=== PATIENT | female | born 1980 | race Two or more races ===

== ENCOUNTER 2020-04-02 13:52 | Inpatient (IN) | payer MEDICAID, OTHER ==
[~2020-04-02] VITALS: Ht 170.2 cm; Wt 88.0 kg
[2020-04-02] MEDS ORDERED: cloNIDine HCL 0.1 MG TAB PO ONE (14:15)
[2020-04-02 15:20] LABS: Basophils # (auto) 0.1 10 ^3/uL (0-0.2); Basophils % (auto) 0.5 % (0.0-2.0); Eosinophils # (auto) 0.1 10 ^3/uL (0-0.8); Eosinophils % (auto) 0.8 % (0.0-7.0); Hematocrit 22.2 % (36.0-46.0); Lymphocytes % (auto) 18.9 % (10.0-50.0); Mean Corpuscular Hemoglobin 17.5 pg (28.0-32.0); Mean Corpuscular Volume 56.4 fL (80.0-100.0); Monocytes # (auto) 0.6 10 ^3/uL (0-1.3); Monocytes % (auto) 5.8 % (0.0-12.0); Neutrophils # (auto) 7.9 10 ^3/uL (1.6-8.6); Platelet Count (auto) 597 10^3/uL (140-450); Red Blood Cells 3.94 10^6/uL (4.0-5.20); White Blood Cell 10.6 10^3/uL (4.4-10.8)
[2020-04-02 15:24] LABS: Hemoglobin 6.9 g/dL (12.2-16.2)
[2020-04-02 15:37] LABS: Albumin 3.2 g/dL (3.4-5.0); Calcium 8.4 mg/dL (8.5-10.1)
[2020-04-02 15:40] LABS: BUN/Creatinine Ratio 9.5; Bilirubin, Total 0.4 mg/dL (0.2-1.0); Total Protein 8.1 g/dL (6.4-8.2)
[2020-04-02 15:44] LABS: Potassium 2.9 mmol/L (3.5-5.1)
[2020-04-02] MEDS ORDERED: POTASSIUM CHLORIDE 40 MEQ, LIDOCAINE 1% (LOCAL ANESTH.) 4 ML in SODIUM CHL 0.9% 250 ML IV ONE (16:00)
[2020-04-02 16:03] LABS: Amphetamine Screen, Urine NEGATIVE (NEGATIVE); Barbiturate Scree,Urine NEGATIVE (NEGATIVE); Cannabinoid Screen, Urine POSITIVE (NEGATIVE)
[2020-04-02 16:11] LABS: Benzodiazephine Screen, Urine NEGATIVE (NEGATIVE); Cocaine Screen, Urine NEGATIVE (NEGATIVE); Opiate Scree,Urine NEGATIVE (NEGATIVE); Phencyclidine Screen, Urine NEGATIVE (NEGATIVE)
[2020-04-02 16:17] LABS: Urine Bacteria NONE SEEN /hpf (None Seen); Urine Blood Negative /uL (Negative); Urine Mucus FEW (None Seen); Urine Specific Gravity 1.022 (1.001-1.035); Urine WBC 11 /hpf (0 - 5)
[2020-04-02 17:17] LABS: INR 1.05 (0.9-1.15); Partial Thromboplastin Time 28.2 sec (23.0-31.2)
[2020-04-02] MEDS ORDERED: cefTRIAXone 1GM/50ML D5W 50 ML IV ONE (19:30)
[2020-04-02] MEDS ORDERED: metroNIDAZOLE 500MG/100ML 100 ML IV ONE (19:30)
[2020-04-02] MEDS: D5W/SOD CHL 0.45%/KCL 40MEQ 1,000 ML IV SCH (19:45)
[2020-04-02] MEDS ORDERED: NITROGLYCERIN 0.4 MG SL TAB SL PRN (19:45)
[2020-04-02] MEDS ORDERED: SODIUM CHLORIDE 0.9% 1,000 ML IV ONE (19:45)
[2020-04-02] MEDS ORDERED: MORPHINE SULF INJ 2 MG/ML SYRINGE 1ML IV PRN (19:45)
[2020-04-02] MEDS: MORPHINE SULF INJ 2 MG/ML SYRINGE 1ML IV PRN (20:00)
[2020-04-02] MEDS: ONDANSETRON HCL 4 MG/2 ML VIAL IV PRN (20:00)
[2020-04-02 20:30] LABS: % Iron Saturation 2.6 % (15-50)
[2020-04-02] MEDS: metroNIDAZOLE 500MG/100ML 100 ML IV SCH (20:41)
[2020-04-02 21:44] VITALS: BP 162/102
[2020-04-02 22:00] VITALS: BP 158/101
[2020-04-02 23:50] VITALS: BP 153/110
[2020-04-03] VITALS: BP 162/104
[2020-04-03 00:15] VITALS: BP 156/90
[2020-04-03] MEDS: MORPHINE SULF INJ 2 MG/ML SYRINGE 1ML IV PRN ×3 (00:16→18:35)
[2020-04-03 01:53] VITALS: BP 165/107
[2020-04-03 05:00] VITALS: BP 162/93
[2020-04-03] MEDS: metroNIDAZOLE 500MG/100ML 100 ML IV SCH ×2 (05:15→14:00)
[2020-04-03] MEDS: D5W/SOD CHL 0.45%/KCL 40MEQ 1,000 ML IV SCH ×2 (05:15→16:13)
[2020-04-03 05:52] LABS: Basophils # (auto) 0 10 ^3/uL (0-0.2); Basophils % (auto) 0.3 % (0.0-2.0); Hemoglobin 8.1 g/dL (12.2-16.2); Monocytes # (auto) 0.6 10 ^3/uL (0-1.3)
[2020-04-03 05:54] LABS: Eosinophils # (auto) 0.1 10 ^3/uL (0-0.8); Eosinophils % (auto) 1.5 % (0.0-7.0); Hematocrit 25.6 % (36.0-46.0); Lymphocytes % (auto) 26.1 % (10.0-50.0); Mean Corpuscular Hemoglobin 19.4 pg (28.0-32.0); Mean Corpuscular Hgb Conc. 31.4 g/dL (32.0-36.0); Mean Corpuscular Volume 61.8 fL (80.0-100.0); Monocytes % (auto) 7.3 % (0.0-12.0); Neutrophils % (auto) 64.8 % (37.0-80.0); Platelet Count (auto) 503 10^3/uL (140-450); Red Blood Cells 4.15 10^6/uL (4.0-5.20); White Blood Cell 7.7 10^3/uL (4.4-10.8)
[2020-04-03 06:05] LABS: BUN/Creatinine Ratio 8.3; Calcium 8.5 mg/dL (8.5-10.1); Potassium 3.4 mmol/L (3.5-5.1)
[2020-04-03 06:23] LABS: INR 1.06 (0.9-1.15); Partial Thromboplastin Time 27.9 sec (23.0-31.2)
[2020-04-03] MEDS: cefTRIAXone 1GM/50ML D5W 50 ML IV SCH (10:14)
[2020-04-03] MEDS: LOSARTAN POTASSIUM 25 MG TAB PO SCH (10:14)
[2020-04-03] MEDS ORDERED: IOHEXOL 350 MG/ML 100ML IJ ONE (14:49)
[2020-04-03] MEDS ORDERED: POTASSIUM EFFERVESENT TAB 25 MEQ PO ONE (16:15)
[2020-04-03] MEDS: ONDANSETRON HCL 4 MG/2 ML VIAL IV PRN (18:35)
[2020-04-03 19:39] LABS: Hemoglobin 8.2 g/dL (12.2-16.2)
[2020-04-03 19:41] LABS: Hematocrit 25.5 % (36.0-46.0)
[2020-04-04 02:00] VITALS: BP 186/110
[2020-04-04] MEDS: MORPHINE SULF INJ 2 MG/ML SYRINGE 1ML IV PRN ×2 (02:28→08:35)
[2020-04-04] MEDS: D5W/SOD CHL 0.45%/KCL 40MEQ 1,000 ML IV SCH ×2 (02:29→12:17)
[2020-04-04] MEDS: metroNIDAZOLE 500MG/100ML 100 ML IV SCH ×4 (02:29→21:42)
[2020-04-04] MEDS: hydrALAZINE HCL 20 MG/ML VL IV PRN ×4 (02:29→22:02)
[2020-04-04 05:00] VITALS: BP 162/93
[2020-04-04] MEDS ORDERED: HYDR25TA4 PO (07:20)
[2020-04-04 07:33] LABS: Basophils # (auto) 0 10 ^3/uL (0-0.2); Basophils % (auto) 0.3 % (0.0-2.0); Eosinophils # (auto) 0.1 10 ^3/uL (0-0.8); Eosinophils % (auto) 1.3 % (0.0-7.0); Mean Corpuscular Hgb Conc. 31.8 g/dL (32.0-36.0)
[2020-04-04 07:35] LABS: Hematocrit 25.6 % (36.0-46.0); Hemoglobin 8.2 g/dL (12.2-16.2); Lymphocytes # (auto) 1.4 10 ^3/uL (0.4-5.4); Lymphocytes % (auto) 14.9 % (10.0-50.0); Mean Corpuscular Hemoglobin 19.3 pg (28.0-32.0); Mean Corpuscular Volume 60.7 fL (80.0-100.0); Monocytes # (auto) 0.6 10 ^3/uL (0-1.3); Monocytes % (auto) 6.9 % (0.0-12.0); Neutrophils # (auto) 7.1 10 ^3/uL (1.6-8.6); Neutrophils % (auto) 76.6 % (37.0-80.0); Platelet Count (auto) 504 10^3/uL (140-450); Red Blood Cells 4.22 10^6/uL (4.0-5.20); White Blood Cell 9.2 10^3/uL (4.4-10.8)
[2020-04-04 07:46] LABS: Potassium 3.5 mmol/L (3.5-5.1)
[2020-04-04 07:51] LABS: Red Cell Distribution Width 27.7 % (11.8-14.3)
[2020-04-04 07:53] LABS: Albumin 2.9 g/dL (3.4-5.0); BUN/Creatinine Ratio 7.6; Bilirubin, Total 0.5 mg/dL (0.2-1.0); Calcium 8.5 mg/dL (8.5-10.1); Total Protein 7.1 g/dL (6.4-8.2)
[2020-04-04] MEDS: ONDANSETRON HCL 4 MG/2 ML VIAL IV PRN (08:35)
[2020-04-04] MEDS: cefTRIAXone 1GM/50ML D5W 50 ML IV SCH (08:35)
[2020-04-04 09:00] VITALS: BP 164/110
[2020-04-04] MEDS ORDERED: amLODIPine BESYLATE 5 MG TAB PO ONE (10:15)
[2020-04-04] MEDS ORDERED: TRIAMTERENE/HCTZ 37.5/25 MG CAP/TAB PO ONE (10:15)
[2020-04-04] MEDS: LOSARTAN POTASSIUM 25 MG TAB PO SCH (10:31)
[2020-04-04] MEDS ORDERED: DOCUSATE SOD 100 MG CAP PO ONE (10:45)
[2020-04-04] MEDS ORDERED: LACTULOSE 20Gm/30ML SOLN PO PRN (10:45)
[2020-04-04 13:00] VITALS: BP 165/116
[2020-04-04] MEDS: ACETAMINOPHEN 325 MG TAB PO PRN ×2 (15:38→19:48)
[2020-04-04 16:44] VITALS: BP 158/95
[2020-04-04 21:37] VITALS: BP 168/119
[2020-04-05] MEDS: D5W/SOD CHL 0.45%/KCL 40MEQ 1,000 ML IV SCH ×3 (02:25→17:45)
[2020-04-05] MEDS: ACETAMINOPHEN 325 MG TAB PO PRN ×2 (05:03→11:40)
[2020-04-05] MEDS: hydrALAZINE HCL 20 MG/ML VL IV PRN ×2 (05:03→12:06)
[2020-04-05] MEDS: metroNIDAZOLE 500MG/100ML 100 ML IV SCH ×2 (05:04→14:00)
[2020-04-05 05:18] VITALS: BP 163/109
[2020-04-05 09:00] VITALS: BP 142/102
[2020-04-05] MEDS: cefTRIAXone 1GM/50ML D5W 50 ML IV SCH (09:02)
[2020-04-05] MEDS: LOSARTAN POTASSIUM 25 MG TAB PO SCH (09:03)
[2020-04-05] MEDS ORDERED: TRIAMTERENE/HCTZ 37.5/25 MG CAP/TAB PO SCH (10:00)
[2020-04-05] MEDS ORDERED: amLODIPine BESYLATE 5 MG TAB PO SCH (10:00)
[2020-04-05] MEDS ORDERED: DOCUSATE SOD 100 MG CAP PO PRN (10:00)
[2020-04-05] MEDS ORDERED: DOCUSATE SOD 100 MG CAP PO SCH (10:00)
[2020-04-05 11:16] LABS: Hematocrit 28.8 % (36.0-46.0); Hemoglobin 9.4 g/dL (12.2-16.2); Mean Corpuscular Hemoglobin 19.9 pg (28.0-32.0); Mean Corpuscular Hgb Conc. 32.7 g/dL (32.0-36.0); Mean Corpuscular Volume 60.6 fL (80.0-100.0); Platelet Count (auto) 535 10^3/uL (140-450); Red Blood Cells 4.75 10^6/uL (4.0-5.20); White Blood Cell 6.2 10^3/uL (4.4-10.8)
[2020-04-05 11:32] LABS: Red Cell Distribution Width 26.5 % (11.8-14.3)
[2020-04-05 11:34] LABS: Basophils % (manual) 0 (0.0-2.0); Blast Cells 0; Metamyelocytes % 0; Myelocytes % 0; Promyelocytes % 0; Reactive Lymphocytes 0
[2020-04-05 11:38] LABS: Calcium 9.3 mg/dL (8.5-10.1); Potassium 3.6 mmol/L (3.5-5.1)
[2020-04-05 11:40] LABS: BUN/Creatinine Ratio 6.6
[2020-04-05 12:56] VITALS: BP 182/117
[2020-04-05 14:30] LABS: Band Neutrophils % (manual) 3; Eosinophils % (manual) 5 (0-7); Lymphocytes % (manual) 17 (10.0-50.0); Monocytes % (manual) 9 (0-12)
[2020-04-05 15:03] VITALS: BP 152/113
== END 2020-04-05 17:40 | disposition home or self-care (01) | DRG 244 ==
LOC: ER 13:52 → OVERFLOW 19:39 → TELE-CENTR 04-03 22:55
PROVIDERS: ADMIT Nurse Practitioner Acute Care; ATTEND Internal Medicine
PROC: 30230N1 Transfusion of Nonautologous Red Blood Cells into Peripheral Vein, Open Approach (ICD-10-PCS; principal; 2020-04-02)
DX: K57.32 Diverticulitis of large intestine without perforation or abscess without bleeding (principal); D62 Acute posthemorrhagic anemia; E44.1 Mild protein-calorie malnutrition; N92.0 Excessive and frequent menstruation with regular cycle; N30.00 Acute cystitis without hematuria; E87.6 Hypokalemia; E66.9 Obesity, unspecified; I10 Essential (primary) hypertension; N93.9 Abnormal uterine and vaginal bleeding, unspecified; Z20.828 Contact with and (suspected) exposure to other viral communicable diseases; R16.0 Hepatomegaly, not elsewhere classified; D35.01 Benign neoplasm of right adrenal gland; I70.8 Atherosclerosis of other arteries; K42.9 Umbilical hernia without obstruction or gangrene; F17.210 Nicotine dependence, cigarettes, uncomplicated; K76.0 Fatty (change of) liver, not elsewhere classified; Z79.899 Other long term (current) drug therapy; Z87.442 Personal history of urinary calculi; Z68.30 Body mass index [BMI] 30.0-30.9, adult
CPT/HCPCS: 36415; 71045; 74176; 76856; 80048; 80053; 80307; 81001; 81025; 82150; 83540; 83550; 83690; 83735; 84443; 84702; 85007; 85014; 85018; 85025; 85027; 85610; 85730; 86850; 86900; 86901; 86920; 87426; G0378; J0696; J2001; J2405; J3490

== ENCOUNTER 2022-03-23 10:24 | Emergency (ER) | payer MEDICAID ==
[~2022-03-23] VITALS: Ht 170.2 cm; Wt 97.0 kg
[~2022-03-23 10:24] MED LIST: HYDR25TA4 PO
[2022-03-23 11:31] VITALS: BP 149/86
[2022-03-23] MEDS ORDERED: methylPREDNISolone SOD SUCC 125 MG/2 ML VL IM ONE (12:45)
[2022-03-23] MEDS ORDERED: DICL50TA4 PO (12:50)
[2022-03-23] MEDS ORDERED: IBUP800T26 PO (12:52)
== END 2022-03-23 12:52 | disposition home or self-care (01) ==
LOC: ER 10:24
DX: M76.892 Other specified enthesopathies of left lower limb, excluding foot (principal); M76.891 Other specified enthesopathies of right lower limb, excluding foot
CPT/HCPCS: 73562; 96372; 99283; J2930